=== PATIENT | female | born 1940 | race Caucasian/White ===

== ENCOUNTER 2018-08-18 11:59 | Emergency (ER) | payer MEDICARE, OTHER ==
[~2018-08-18] VITALS: Ht 160 cm; Wt 80.3 kg
[2018-08-18] MEDS ORDERED: KETOROLAC 30 MG/1 ML ONE (12:54)
[2018-08-18] MEDS ORDERED: KETOROLAC 30 MG/1 ML IM ONE (13:00)
[2018-08-18] MEDS ORDERED: METHOCARBAMOL 750 MG TABLET PO ONE (13:30)
[2018-08-18] MEDS ORDERED: METHOCARBAMOL 750 MG TABLET ONE (13:35)
[2018-08-18 14:40] LABS: MICROSCOPIC INDICATED
[2018-08-18 15:31] LABS: CULTURE INDICATED? NO
[2018-08-18 15:32] VITALS: BP 169/60
== END 2018-08-18 15:44 | disposition home or self-care (01) ==
LOC: ED 13:30
DX: M54.42 Lumbago with sciatica, left side (principal); R05 Cough; I10 Essential (primary) hypertension; Z88.0 Allergy status to penicillin
CPT/HCPCS: 71046; 81001; 96372; 99285; J1885